=== PATIENT | male | born 2000 | race Caucasian/White ===

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

== ENCOUNTER 2021-10-03 11:35 | Emergency (ER) | payer OTHER ==
[2021-10-03 12:12] VITALS: TEMP 98.3; BMI 20.9
[2021-10-03] MEDS ORDERED: SODIUM CHLORIDE 1,000 ML IV STA (13:49)
[2021-10-03 14:21] VITALS: BP 124/81; PULSE 118
[2021-10-03 15:03] LABS: BASO % 0.5 % (0-2.0); EOS % 0.3 % (0-4.5); HEMATOCRIT 47.1 % (35.4-49); HEMOGLOBIN 15.6 GM/dL (11.7-16.9); LYMPH % 15.7 % (8-40); MCH 28.9 pg (25.7-33.7); MCHC 33.1 g/dl (32.0-35.9); MEAN CELL VOLUME 87.4 fl (80-96); MEAN PLT VOLUME 8.7 fl (7.5-11.1); MONO % 4.4 % (3.8-10.2); NEUT % 79.1 % (42.8-82.8); PLATELET COUNT 153 10^3/uL (134-434); RBC 5.39 M/mm3 (4.00-5.60); RDW 13.7 % (11.9-15.9)
[2021-10-03 15:09] LABS: PROTHROMBIN TIME (PATIENT) 11.5 SEC (9.7-13.0)
[2021-10-03 15:26] LABS: ALBUMIN 4.5 g/dl (3.4-5.0); BLOOD UREA NITROGEN 15.2 mg/dL (7-18); CALCIUM 9.7 mg/dL (8.5-10.1)
[2021-10-03 15:29] LABS: CREATININE 0.9 mg/dL (0.55-1.3)
[2021-10-03 15:31] LABS: BILIRUBIN,TOTAL 0.2 mg/dL (0.2-1); TOT PROT 7.8 g/dl (6.4-8.2)
[2021-10-03 15:55] LABS: THROAT:GRP A STREP NOT DETECTED (NOTDETECTED)
== END 2021-10-03 16:09 | disposition home or self-care (01) ==
LOC: JER 11:35 → JERFT 11:35
DX: R55 Syncope and collapse (principal)
CPT/HCPCS: 0241U-QW; 36415; 70450-TC; 80053; 84484; 85025; 85610; 87651; 93005; 93010; 99285-25

== ENCOUNTER 2021-12-11 01:40 | Emergency (ER) | payer OTHER ==
[2021-12-11 01:50] VITALS: TEMP 97.9; BMI 20.9
[2021-12-11] MEDS ORDERED: SODIUM CHLORIDE 0.9% 500 ML INFUS.BAG IV ONE (02:20)
[2021-12-11 03:01] LABS: BASO % 0.7 % (0-2.0); EOS % 0.5 % (0-4.5); HEMATOCRIT 44.2 % (35.4-49); HEMOGLOBIN 14.9 GM/dL (11.7-16.9); LYMPH % 22.5 % (8-40); MCH 29.5 pg (25.7-33.7); MCHC 33.8 g/dl (32.0-35.9); MEAN CELL VOLUME 87.1 fl (80-96); MEAN PLT VOLUME 8.8 fl (7.5-11.1); MONO % 5.5 % (3.8-10.2); NEUT % 70.8 % (42.8-82.8); PLATELET COUNT 163 10^3/uL (134-434); RBC 5.07 M/mm3 (4.00-5.60); RDW 13.5 % (11.9-15.9); WHITE BLOOD COUNT 10.3 K/mm3 (4.0-10.0)
[2021-12-11 03:21] LABS: CHLORIDE 104 mmol/L (98-107); SODIUM 139 mmol/L (136-145)
[2021-12-11 03:23] LABS: CALCIUM 9.5 mg/dL (8.5-10.1)
[2021-12-11 03:24] LABS: ALBUMIN 4.5 g/dl (3.4-5.0); ANION GAP 6 MMOL/L (8-16); BLOOD UREA NITROGEN 16.7 mg/dL (7-18); CO2 29 mmol/L (21-32); GLUCOSE,RANDOM 100 mg/dL (74-106)
[2021-12-11 03:27] LABS: CREATININE 1.1 mg/dL (0.55-1.3); SGOT/AST 24 U/L (15-37); SGPT/ALT 20 U/L (13-61)
[2021-12-11 03:29] LABS: BILIRUBIN,TOTAL 0.5 mg/dL (0.2-1); TOT PROT 7.8 g/dl (6.4-8.2)
[2021-12-11 03:30] LABS: ALK PHOS 68 U/L (45-117)
[2021-12-11 04:44] VITALS: BP 128/77; PULSE 87; RESP 16
[2021-12-11 15:05] LABS: PHOSPHOROUS 3.5 mg/dL (2.5-4.9)
== END 2021-12-11 04:45 | disposition home or self-care (01) ==
LOC: JER 01:40
DX: R00.2 Palpitations (principal)
CPT/HCPCS: 36415; 80053; 83735; 84100; 84443; 84484; 85025; 93005; 93010; 99284-25

== ENCOUNTER 2021-12-24 04:33 | Emergency (ER) | payer OTHER ==
[2021-12-24 04:55] VITALS: BP 121/78; PULSE 104; RESP 20; TEMP 98.1; BMI 20.9
[2021-12-24] MEDS ORDERED: LACTATED RINGERS SOLUTION 1000 ML INFUS.BAG IV ONE (04:55)
[2021-12-24] MEDS ORDERED: LORazepam 2 MG/ML SDV VIAL IVPUSH ONE (04:56)
[2021-12-24 05:47] LABS: BASO % 0.4 % (0-2.0); HEMATOCRIT 44.7 % (35.4-49); HEMOGLOBIN 14.6 GM/dL (11.7-16.9); LYMPH % 34.7 % (8-40); MCH 28.6 pg (25.7-33.7); MCHC 32.8 g/dl (32.0-35.9); MEAN CELL VOLUME 87.2 fl (80-96); MEAN PLT VOLUME 9.2 fl (7.5-11.1); MONO % 5.8 % (3.8-10.2); NEUT % 58.1 % (42.8-82.8); PLATELET COUNT 128 10^3/uL (134-434); RBC 5.12 M/mm3 (4.00-5.60); RDW 13.3 % (11.9-15.9); WHITE BLOOD COUNT 6.9 K/mm3 (4.0-10.0)
[2021-12-24 06:06] LABS: ALBUMIN 4.3 g/dl (3.4-5.0); CALCIUM 9.4 mg/dL (8.5-10.1); MAGNESIUM 1.9 mg/dL (1.8-2.4)
[2021-12-24 06:07] LABS: BLOOD UREA NITROGEN 21.8 mg/dL (7-18)
[2021-12-24 06:09] LABS: CREATININE 1.1 mg/dL (0.55-1.3)
[2021-12-24 06:11] LABS: BILIRUBIN,TOTAL 0.6 mg/dL (0.2-1); TOT PROT 7.2 g/dl (6.4-8.2)
[2021-12-24] MEDS ORDERED: POTASSIUM CHLORIDE TABS 20 MEQ TABLET.ER (FP) PO ONE ×2 (06:13→06:31)
== END 2021-12-24 06:40 | disposition home or self-care (01) ==
LOC: JER 04:33
PROC: 3E033NZ Introduction of Analgesics, Hypnotics, Sedatives into Peripheral Vein, Percutaneous Approach (ICD-10-PCS; principal; 2021-12-24)
DX: R25.1 Tremor, unspecified (principal)
CPT/HCPCS: 36415; 80053; 82962; 83735; 85025; 93005; 93010; 99284-25